=== PATIENT | female | born 1990 | race Caucasian/White ===

== ENCOUNTER 2017-06-30 17:24 | Emergency (ER) | payer MEDICAID ==
[~2017-06-30] VITALS: Ht 157.5 cm; Wt 78.0 kg
[~2017-06-30 17:24] MED LIST: DENIES
[2017-06-30 17:30] VITALS: Ht 157.5 cm; Wt 78.0 kg
[2017-06-30] MEDS ORDERED: SOD CHLORIDE 0.9% 1,000 ML IV STA (18:49)
[2017-06-30] MEDS ORDERED: ACETAMINOPHEN 500 MG TAB PO STA (18:49)
[2017-06-30] MEDS ORDERED: PREN-47 PO (19:01)
--- NOTE | 2017-06-30 19:02 | ERD ---
ER Documentation Chief Complaint Chief Complaint Abd pain radiating to back x 1400 today HPI 26-year-old female presents to emergency department for complaints of lower abdominal pain radiating to the back that started at 2 PM today. Patient is approximately 16 weeks . 3 para 2 0. LMP 03/10/2017. Patient describes the pain as cramping pain, 4/10 scale, it radiates to the back , denies any nausea or vomiting. Patient felt warm today. Patient denies any vaginal bleeding. ROS All systems reviewed and are negative except as per history of present illness. Medications Home Meds Active Scripts Acetaminophen* (Tylophen*) 500 Mg Capsule, 1 CAP PO Q6H Y for PAIN AND OR ELEVATED TEMP, #20 CAP Prov:ALEXEI CRAFT NP 06/30/17 Azithromycin* (Zithromax*) 250 Mg Tablet, 250 MG PO .ZPACK DIRECTED, #6 TAB TAKE 500 MG (2 TABS) THE FIRST DAY THEN 250 MG (1 TAB) DAYS 2-5 Prov:ALEXEI CRAFT NP 06/30/17 Reported Medications [id number] Acid ([place]ata Chewable) Unknown Strength Tab.chew, PO DAILY, TAB.CHEW 06/30/17 [Denies] No Conflict Check 08/11/09 Allergies Allergies: Coded Allergies: No Known Allergy (Verified Allergy, Mild, 08/11/09) PMhx/Soc Medical and Surgical Hx: pt denies Medical Hx, pt denies Surgical Hx History of Surgery: No Hx Neurological Disorder: No Hx Respiratory Disorders: No Hx Cardiac Disorders: No Hx Miscellaneous Medical Probl: No Hx Alcohol Use: No Hx Substance Use: No Hx Tobacco Use: No FmHx Family History: No coronary disease, No diabetes, No other Physical Exam Vitals Vital Signs Date Time Temp Pulse Resp B/P Pulse Ox O2 Delivery O2 Flow Rate FiO2 06/30/17 17:30 101.1 20 130 124/78 99 Physical Exam GENERAL: The patient is well developed and appropriate for usual state of health, in no apparent distress. CHEST: Clear to auscultation bilaterally. There are no rales, wheezes or rhonchi. HEART: Regular rate and rhythm. No murmurs, clicks, rubs or gallops. No S3 or S4. ABDOMEN: Soft, nontender and nondistended. Good bowel sounds. No rebound or guarding. No gross peritonitis. No gross organomegaly or masses. No Curiel sign or McBurney point tenderness. BACK: No midline or flank tenderness. EXTREMITIES: Equal pulses bilaterally. There is no peripheral clubbing, cyanosis or edema. No focal swelling or erythema. Full range of motion. Grossly neurovascularly intact. NEURO: Alert and oriented. Cranial nerves 2-12 intact. Motor strength in all 4 extremities with 5/5 strength. Sensation grossly intact. Normal speech and gait. SKIN: There is no apparent rash or petechia. The skin is warm and dry. HEMATOLOGIC AND LYMPHATIC: There is no evidence of excessive bruising or lymphedema. No gross cervical, axillary, or inguinal lymphadenopathy. Result Diagram: 06/30/17194406/30/171944 Results 24 hrs Laboratory Tests Test 06/30/17 19:45 White Blood Count 8.610^3/ul Red Blood Count 4.8010^6/ul Hemoglobin 14.1g/dl Hematocrit 40.9% Mean Corpuscular Volume 85.2fl Mean Corpuscular Hemoglobin 29.4pg Mean Corpuscular Hemoglobin Concent 34.5g/dl Red Cell Distribution Width 13.0% Platelet Count 93231^3/UL Mean Platelet Volume 9.9fl Neutrophils % 74.5% Lymphocytes % 14.1% Monocytes % 8.5% Eosinophils % 0.9% Basophils % 0.5% Nucleated Red Blood Cells % 0.0/100WBC Neutrophils # 6.410^3/ul Lymphocytes # 1.210^3/ul Monocytes # 0.710^3/ul Eosinophils # 0.110^3/ul Basophils # 0.010^3/ul Nucleated Red Blood Cells # 0.010^3/ul Urine Color YELLOW Urine Clarity SLIGHTLY CLOUDY Urine pH 5.0 Urine Specific [place] 1.012 Urine Ketones NEGATIVEmg/dL Urine Nitrite NEGATIVEmg/dL Urine Bilirubin NEGATIVEmg/dL Urine Urobilinogen NEGATIVEmg/dL Urine Leukocyte Esterase TRACELeu/ul Urine Microscopic RBC 0/HPF Urine Microscopic WBC 5/HPF Urine Squamous Epithelial Cells MODERATE/HPF Urine Bacteria FEW/HPF Urine Mucus FEW/HPF Urine Hemoglobin NEGATIVEmg/dL Urine Glucose NEGATIVEmg/dL Urine Total Protein NEGATIVEmg/dl Sodium Level 135mmol/L Potassium Level 3.5mmol/L Chloride Level 102mmol/L Carbon Dioxide Level 24mmol/L Anion Gap 13 Blood Urea Nitrogen 5mg/dl Creatinine 0.57mg/dl Glucose Level 95mg/dl Calcium Level 9.2mg/dl Total Bilirubin 0.2mg/dl Direct Bilirubin 0.00mg/dl Indirect Bilirubin 0.2mg/dl Aspartate Amino Transf (AST/SGOT) 20IU/L Alanine Aminotransferase (ALT/SGPT) 27IU/L Alkaline Phosphatase 86IU/L Total Protein 7.4g/dl Albumin 4.2g/dl Globulin 3.20g/dl Albumin/Globulin Ratio 1.31 Lipase 99U/L Current Medications Medications (Trade) Dose Ordered Sig/Mayur Route PRN Reason Start Time Stop Time Status Last Admin Dose Admin Sodium Chloride (NS) 1,000 ml @ 1,000 mls/hr Q1H STAT IV 06/30/17 18:49 06/30/17 19:48 DC 06/30/17 19:37 Acetaminophen 1000 mg 1,000 mg ONCE STAT PO 06/30/17 18:49 06/30/17 18:51 DC 06/30/17 19:37 Ceftriaxone Sodium (Rocephin) 50 ml @ 100 mls/hr ONCE ONCE IVPB 06/30/17 22:00 06/30/17 22:29 DC 06/30/17 22:00 Patient was given medicines for fever control here in the emergency department. After treatment, patient temperature improved and lower. Patient appears well and is hemodynamically stable. IV Rocephin was given here in emergency department for treatment for pneumonia. Normal saline IV bolus was given here in emergency department for rehydration, patient tolerated IV fluids. Microbiology INFLUENZA A & B BY EIA Final INFLU A&B BY EIA INFLUENZA A NEGATIVE (Ref Range Neg) INFLUENZA B NEGATIVE (Ref Range Neg) PROCEDURE: XR Chest. CLINICAL INDICATION: Fever. TECHNIQUE: Single frontal view of the chest. COMPARISON: None. FINDINGS: The cardiomediastinal silhouette is within normal limits. The lungs are clear. No signs of pleural fluid or pneumothorax are seen. The osseous structures and soft tissues are unremarkable. IMPRESSION: Mild right lung base atelectasis versus airspace disease. RPTAT: [facility] Physician Oleg Date Time Electronically viewed and signed by Physician Oleg on 06/30/2017 21:41 RS/ CC: ALEXEI CRAFT INTERIOR DESIGN INSTRUCTOR Procedures/MDM Medical Decision Making: Patient's fever cough most likely is consistent with pneumonia seen in the chest x-ray. Patient's abdominal pain nonspecific, possible from the groin . Patient is a viable , no symptoms of urinary tract infection or pyelonephritis. Low suspicion for any other abdominal emergencies. Patient has a viable without any subchorionic bleed, no symptoms of any threatened . There is low suspicion for abdominal emergencies at this time. Patients abdominal exam is normal at this time. Patients radiology exam does not show any abdominal emergencies at this time. There is low suspicion for appendicitis, cholecystitis, abdominal aortic aneurysms or peritonitis at this time. There is low suspicion for sepsis. Patient appears well and is hemodynamically stable. Disposition: Home. Condition: Stable Prescription Azithromycin, Tylenol Instructions: Patient is advised to take medications as prescribed. Patient is advised to rest, increase fluid intake and do brat diet for next 1-2 days and progress as tolerated. Patient is advised that if symptoms are worse, severe abdominal pain, uncontrolled vomiting, high fever, severe flank pain, worst signs and symptoms, to return to the emergency department immediately. Otherwise, patient can follow up with primary care doctor in 5-7 days. Disclaimer: Inadvertent spelling and grammatical errors are likely due to EHR/ dictation software use and do not reflect on the overall quality of patient care. Also, please note that the electronic time recorded on this note does not necessarily reflect the actual time of the patient encounter. Departure Diagnosis: Primary Impression: Pneumonia Pneumonia type: due to unspecified organism Laterality: right Lung location : lower lobe of lung Qualified Code: J18.1 - Pneumonia of right lower lobe due to infectious organism Additional Impressions: Intrauterine Abdominal pain Abdominal location: lower abdomen, unspecified Qualified Code: R10.30 - Lower abdominal pain Condition: Stable Patient Instructions: Pelvic Pain In : Unclear (2-3 Trimester), Pneumonia (Adult) Additional Instructions: Patient is advised to take medications as prescribed. Patient is advised to rest , increase fluid intake and do brat diet for next 1-2 days and progress as tolerated. Patient is advised that if symptoms are worse, severe abdominal pain , uncontrolled vomiting, high fever, severe flank pain, worst signs and symptoms , to return to the emergency department immediately. Otherwise, patient can follow up with primary care doctor in 5-7 days. ALEXEI CRAFT NP Jun 30, 2017 19:02
[2017-06-30 20:01] LABS: BASOPHILS % 0.5 % (0.0-2.0); EOSINOPHILS # 0.1 10^3/ul (0.0-0.5); EOSINOPHILS % 0.9 % (0.0-7.0); HEMATOCRIT 40.9 % (37.0-47.0); HEMOGLOBIN 14.1 g/dl (12.0-16.0); LYMPHOCYTES # 1.2 10^3/ul (0.8-2.9); LYMPHOCYTES % 14.1 % (15.0-51.0); MEAN CORPUSCULAR HEMOGLOBIN 29.4 pg (29.0-33.0); MEAN CORPUSCULAR HGB CONC 34.5 g/dl (32.0-37.0); MEAN CORPUSCULAR VOLUME 85.2 fl (82.0-101.0); MEAN PLATELET VOLUME 9.9 fl (7.4-10.4); MONOCYTE # 0.7 10^3/ul (0.3-0.9); MONOCYTES % 8.5 % (0.0-11.0); NEUTROPHIL # 6.4 10^3/ul (1.6-7.5); NEUTROPHILS % 74.5 % (39.0-77.0); PLATELET COUNT 261 10^3/UL (140-415); WHITE BLOOD COUNT 8.6 10^3/ul (4.8-10.8)
[2017-06-30 20:02] LABS: ADD UMIC YES; UR ASCORBIC ACID NEGATIVE (NEGATIVE); UR BACTERIA FEW /HPF (NONE SEEN); UR BILIRUBIN (Dip) NEGATIVE (NEGATIVE); UR BLOOD (Dip) NEGATIVE (NEGATIVE); UR CLARITY SLIGHTLY CLOUDY (CLEAR); UR COLOR YELLOW (YELLOW); UR GLUCOSE (Dip) NEGATIVE (NEGATIVE); UR KETONES (Dip) NEGATIVE (NEGATIVE); UR LEUKOCYTE ESTERASE (Dip) TRACE Leu/ul (NEGATIVE); UR MUCUS FEW /HPF (NONE SEEN); UR NITRITE (Dip) NEGATIVE (NEGATIVE); UR RBC 0 /HPF (0-5); UR SPECIFIC GRAVITY (Dip) 1.012 (1.003-1.030); UR SQUAMOUS EPITHELIAL CELL MODERATE /HPF (FEW); UR TOTAL PROTEIN (Dip) NEGATIVE (NEGATIVE); UR UROBILINOGEN (Dip) NEGATIVE (NEGATIVE)
--- NOTE | 2017-06-30 20:06 | RADRPT ---
PROCEDURE: US Obstetric greater than 14 weeks. CLINICAL INDICATION: Pain TECHNIQUE: Multiple sonographic images of the pelvis were obtained. Transabdominal imaging only w as performed. The images were reviewed on a PACS workstation. COMPARISON: No prior studies are available for comparison. FINDINGS: Single intrauterine gestation. Variable presentation. heart rate is 171 bpm. The cervix is grossly long and closed. Measurements were made in order to determine age. The results are as follows: BPD = 3.46 cm HC = 12.36 cm AC = 10.26 cm FL = 2.05 cm Estimated gestational age is 16 weeks 2 days (based on ultrasound measurements). Estimated date of delivery is 12/13/2017. EFW = 148 g +/- 22 g. (54%) The placenta is anterior. There is no evidence for an abruption or placenta previa. Amniotic fluid volume is grossly normal - maximum vertical pocket measures 4.0 cm. IMPRESSION: 1. Single live intrauterine gestation of 16 weeks 2 days (based on ultrasound measurements), as abo ve. RPTAT: HDWR .Ambrocio Wylie MD, Date Time Electronically viewed and signed by .Ambrocio Wylie MD, on 06/30/2017 20:05 .R/
[2017-06-30 20:17] LABS: ALBUMIN 4.2 g/dl (3.3-4.9); ALBUMIN/GLOBULIN RATIO 1.31; BILIRUBIN,INDIRECT 0.2 mg/dl (0-1.1); BILIRUBIN,TOTAL 0.2 mg/dl (0.2-1.3); CALCIUM 9.2 mg/dl (8.4-10.2); CREATININE 0.57 mg/dl (0.44-1.00); POTASSIUM 3.5 mmol/L (3.5-5.1); TOTAL PROTEIN 7.4 g/dl (6.1-8.1)
--- NOTE | 2017-06-30 21:41 | RADRPT ---
PROCEDURE: XR Chest. CLINICAL INDICATION: Fever. TECHNIQUE: Single frontal view of the chest. COMPARISON: None. FINDINGS: The cardiomediastinal silhouette is within normal limits. The lungs are clear. No signs of pleural f luid or pneumothorax are seen. The osseous structures and soft tissues are unremarkable. IMPRESSION: Mild right lung base atelectasis versus airspace disease. RPTAT: [facility] Physician Oleg Date Time Electronically viewed and signed by Suize Garcia Physician on 06/30/2017 21:41 RS/
[2017-06-30] MEDS ORDERED: AZIT250T94 PO (21:54)
[2017-06-30] MEDS ORDERED: ACET500C5 PO (21:54)
[2017-06-30] MEDS ORDERED: CEFTRIAXONE 1 GM/50 ML (PMX) 50 ML IVPB ONE (22:00)
== END 2017-06-30 22:36 | disposition home or self-care (01) ==
LOC: FTE 17:24
DX: O99.512 Diseases of the respiratory system complicating pregnancy, second trimester (principal); J18.1 Lobar pneumonia, unspecified organism; R10.30 Lower abdominal pain, unspecified; Z3A.16 16 weeks gestation of pregnancy
CPT/HCPCS: 71010; 76805; 80053; 81001; 83690; 85025; 87086; 87400; J0696; J7030; Z7610; 36415; 96374

== ENCOUNTER → 2017-10-08 21:16 | Outpatient (CLI) | END | disposition home or self-care (01) ==

== ENCOUNTER 2017-10-30 15:19 | Outpatient (CLI) | END 2017-10-30 17:10 | disposition home or self-care (01) ==

== ENCOUNTER 2017-12-06 03:55 | Inpatient (IN) | END 2017-12-09 18:57 | disposition home or self-care (01) | DRG 775 ==